=== PATIENT | female | born 1985 | race Caucasian/White ===

== ENCOUNTER 2019-02-25 09:23 | Emergency (ER) | payer MEDICAID ==
[~2019-02-25] VITALS: Ht 160 cm; Wt 125.2 kg
[2019-02-25 09:27] VITALS: Ht 160 cm; Wt 125.2 kg
[2019-02-25 12:14] VITALS: BP 128/77
== END 2019-02-25 12:14 | disposition home or self-care (01) ==
LOC: ED 09:23
DX: M54.42 Lumbago with sciatica, left side (principal); J45.909 Unspecified asthma, uncomplicated; Z88.0 Allergy status to penicillin
CPT/HCPCS: J1885